=== PATIENT | female | born 1975 | race Caucasian/White ===

== ENCOUNTER 2018-01-10 18:32 | Emergency (ER) | payer SELFPAY ==
[~2018-01-10] VITALS: Ht 162.6 cm; Wt 113.4 kg
[2018-01-10] MEDS ORDERED: HYDROCODONE/APAP 5MG-325MG TAB PO ONE (20:15)
--- NOTE | 2018-01-10 22:36 | Diagnostic Imaging Report ---
HUMERUS LEFT 2+VIEWS, SHOULDER LEFT COMPLETE Comparison: None Clinical history: \S\fall, concern for proximal fracture \S\[id number] \S\[id number] Findings: Slightly comminuted displaced fracture of the greater tuberosity. Normal glenohumeral alignment. Impression: Mildly displaced fracture of the greater tuberosity. Signed by: Dr Sofi Soares MD on 01/10/2018 10:32 PM
== END 2018-01-10 23:31 | disposition home or self-care (01) ==
LOC: ER 18:32
DX: S42.252A Displaced fracture of greater tuberosity of left humerus, initial encounter for closed fracture (principal); W01.0XXA Fall on same level from slipping, tripping and stumbling without subsequent striking against object, initial encounter; Y92.008 Other place in unspecified non-institutional (private) residence as the place of occurrence of the external cause; E78.5 Hyperlipidemia, unspecified; E07.9 Disorder of thyroid, unspecified; K21.9 Gastro-esophageal reflux disease without esophagitis; F32.9 Major depressive disorder, single episode, unspecified
CPT/HCPCS: 99283